=== PATIENT | female | born 1970 | race Two or more races ===

== ENCOUNTER 2018-10-20 11:00 | Day surgery (SDC) | payer OTHER ==
[~2018-10-20 11:00] MED LIST: VITAMINA D; ZOCOR20 MG
[2018-10-20] MEDS ORDERED: PERCOCET 5-3251 EACH PO (13:22)
[2018-10-20] MEDS ORDERED: COLACE100 MG PO (13:22)
== END 2018-10-20 19:25 | disposition home or self-care (01) ==
LOC: CIR.AMB 11:00
DX: K64.8 Other hemorrhoids (principal); K64.4 Residual hemorrhoidal skin tags